=== PATIENT | female | born 1955 | race Two or more races ===

== ENCOUNTER 2021-03-13 06:20 | Day surgery (SDC) | payer OTHER ==
[~2021-03-13] VITALS: Ht 162.6 cm; Wt 113.4 kg
[~2021-03-13 06:20] MED LIST: BUSPIRONE HCL10 MG PO; DRIZALMA SPRINK60 MG PO; ENDOCET 5-3251 EACH PO; EXFORGE 5-1601 EACH PO; FLUTICASONE-SA1 EAC5; HUMALOG100 UNIT/2; HYDROCHLOROTHIA25 MG PO; HYDROXYZINE PAM50 MG PO; JENTADUETO 2.51 EAC2 PO; LANTUS SOL100 UNIT/1; LEVO-T50 MCG PO; LIPITOR20 MG PO; LYRICA300 MG PO; MONTELUKAST SOD10 MG PO; OMEPRAZOLE40 MG PO; PROAIR HFA8.5 GM IH; TRAZODONE HCL150 MG PO
[2021-03-13] MEDS ORDERED: AMOX-CLAV 875-1 EAC1 PO (12:07)
[2021-03-13] MEDS ORDERED: COLACE100 MG PO (12:07)
[2021-03-13] MEDS ORDERED: MEDROLPACK PO (12:07)
[2021-03-13] MEDS ORDERED: PERCOCET 5-3251 EACH PO (12:07)
[2021-03-13] MEDS ORDERED: DIAZEPAM5 MG PO (12:07)
== END 2021-03-14 11:00 | disposition home or self-care (01) ==
LOC: CIR.AMB 06:20 → PED 06:20 → O/R 06:20 → SURH 06:20 → EDSTATUS 09:45 → SURH 09:45 → PED 14:21 → O/R 14:21 → PED 14:21 → SURH 14:30 → CIR.AMB 03-14 11:00 → PED 03-14 18:17
PROVIDERS: ATTEND Orthopaedic Surgery Orthopaedic Surgery of the Spine
DX: M48.062 Spinal stenosis, lumbar region with neurogenic claudication (principal); M51.36 Other intervertebral disc degeneration, lumbar region; Z20.822 Contact with and (suspected) exposure to COVID-19
CPT/HCPCS: 20938; 20939; 22533; 22612; 22614; 22840; 22845; C1776